=== PATIENT | female | born 1965 | race Caucasian/White ===

== ENCOUNTER 2021-03-14 07:15 | Emergency (ER) | payer BC, SELFPAY ==
[2021-03-14 07:26] VITALS: BP 176/93; PULSE 80; RESP 16; TEMP 36.1; O2SAT 99
--- NOTE | 2021-03-14 07:50 | ED.FEMALEGU ---
HPI - Female Genitourinary General Chief complaint: Urogenital-Female Stated complaint: VAG BLEED Time Seen by Provider: 03/14/21 07:29 Source: patient Mode of arrival: ambulatory Limitations: no limitations History of Present Illness HPI Narrative: Patient is a 35-year-old female complaining of something coming out of my vagina accompanied by mild vaginal bleeding that started this morning. Patient states that she has been coughing for the past 2 weeks. She states that she did test negative for Covid. Patient denies any chest pain, shortness of breath, abdominal pain, nausea, vomiting, diarrhea, GI bleed, fever or chills. Patient denies any injury to the area. Related Data Home Medications Medication Instructions Recorded Confirmed albuterol sulfate 90 mcg/actuation 1 puff INHALATION Q4H PRN 02/21/21 02/21/21 aerosol inhaler aspirin 81 mg tablet,delayed 81 mg PO DAILY 02/21/21 02/21/21 release coenzyme Q10 100 mg capsule 100 mg PO DAILY 02/21/21 02/21/21 ergocalciferol (vitamin D2) 50 mcg 50 mcg PO DAILY 02/21/21 02/21/21 (2,000 unit) capsule lisinopril 10 1 tablet PO DAILY 02/21/21 02/21/21 mg-hydrochlorothiazide 12.5 mg tablet naproxen sodium 220 mg tablet 220 mg PO BID PRN 02/21/21 02/21/21 omeprazole 20 mg capsule,delayed 20 mg PO DAILY 02/21/21 02/21/21 release Allergies Allergy/AdvReac Type Severity Reaction Status Date / Time latex Allergy Mild ITCHING Verified 09/12/14 08:20 No Known Drug Allergies Allergy Unknown unknown Verified 02/21/21 14:38 Review of Systems Review of Systems: All systems reviewed & are unremarkable except as noted in HPI and below Constitutional: Constitutional: Denies body ache(s), Denies chills, Denies excessive sweating, Denies fatigue, Denies fever(s), Denies headache(s), Denies lethargy, Denies malaise, Denies weakness and Denies weight loss Eyes: Eyes: Denies blurry vision, Denies change in vision and Denies loss of vision ENT: Denies dizziness, Denies ear discharge, Denies headache(s), Denies lip swelling, Denies epistaxis, Denies nasal congestion, Denies neck pain, Denies throat swelling and Denies tongue swelling Cardiovascular: Cardiovascular: Denies chest pain, Denies chest pain at rest, Denies chest pain with activity, Denies diaphoresis, Denies rapid heart rate, Denies edema, Denies irregular heart rhythm, Denies lightheadedness, Denies palpitations, Denies dyspnea and Denies dyspnea on exertion Respiratory: Respiratory: Denies chest congestion, Denies cough, Denies hemoptysis, Denies dyspnea and Denies dyspnea on exertion Gastrointestinal: Gastrointestinal: Denies abdominal pain, Denies melena, Denies hematochezia, Denies diarrhea, Denies nausea, Denies vomiting and Denies hematemesis Musculoskeletal: Musculoskeletal: Denies abnormal gait, Denies deformity, Denies joint swelling, Denies limited range of motion, Denies neck pain and Denies numbness Neurologic: Denies Abnormal speech present, Denies abnormal gait, Denies confusion, Denies dizziness, Denies headache(s), Denies focal weakness, Denies loss of vision, Denies numbness, Denies Other visual disturbances, Denies Sensory deficit (Neuro) and Denies weakness Psychiatric: Psychiatric: Denies confusion, Denies depression, Denies auditory hallucinations, Denies homicidal ideation and Denies suicidal ideation Endocrine: Endocrine: Denies cold intolerance, Denies excessive sweating, Denies fatigue, Denies heat intolerance and Denies palpitations Hematologic/Lymphatic: Hematologic/Lymphatic: Denies easy bleeding and Denies easy bruising Allergic/Immunologic: Allergic/Immunologic: Denies lip swelling, Denies throat swelling and Denies tongue swelling PMFSH Past Medical History Medical History Allergies Arthritis Asthma Degenerative arthritis of knee, bilateral Diabetes GERD (gastroesophageal reflux disease) HTN (hypertension) Varicose vein of leg
--- NOTE | 2021-03-14 07:59 | PC.NURSE ---
EDP informed that pt has bleeding and tissue prolapsing from vagina, pelvic exam ready at bedside.
--- NOTE | 2021-03-14 08:50 | PC.NURSE ---
Provider at bedside.
[2021-03-14 09:15] LABS: Add Urine Microscopic? YES; Appearance Urine Clear (Clear); Bilirubin Urine Negative (Negative); Blood Urine 3+ (Negative); Color Urine Yellow (Yellow); Glucose Urine UA Negative (Negative); Ketones Urine Negative (Negative); Leukocyte Esterase Ur Negative LEU/UL (Negative); Mucus Urine Rare /lpf; Nitrate Urine Negative (Negative); Protein Urine 2+ mg/dL (Negative); RBC Urine >75 /hpf (0-2); Specific Grav Ur 1.014 (1.001-1.035); Squamous Epithelial Cell Urine Rare /hpf (Few); Urobilinogen Urine Negative mg/dL (<2.0); WBC Urine 0-3 /hpf
[2021-03-14 10:32] VITALS: BP 139/75; PULSE 82; RESP 18; O2SAT 98
== END 2021-03-14 10:32 | disposition home or self-care (01) ==
PROVIDERS: Emergency Provider Emergency Medicine; PCP Nurse Practitioner Family
DX: N81.4 Uterovaginal prolapse, unspecified (principal); Z79.82 Long term (current) use of aspirin; J45.909 Unspecified asthma, uncomplicated; M17.0 Bilateral primary osteoarthritis of knee; K21.9 Gastro-esophageal reflux disease without esophagitis; I10 Essential (primary) hypertension
CPT/HCPCS: 81001; 81025; 99283

== ENCOUNTER 2022-07-14 21:19 | Emergency (ER) | payer BC, SELFPAY ==
[2022-07-14] VITALS (13 sets, daily range): BP systolic 110–148; BP diastolic 64–77; PULSE 73–81; RESP 18; TEMP 36.3–36.6; O2SAT 98–100
--- NOTE | ~2022-07-14 | CT_ITS ---
CT of the Abdomen and Pelvis: Indication: Abdominal pain Technique: 2.5 mm axial scans were obtained through the abdomen and pelvis following intravenous adm inistration of 100 cc of Omnipaque 350. Dose reduction technique was used on this scan by utilizing a utomated exposure control and iterative reconstruction technique. The dose-length product (DLP) was 1 210.54 mGy-cm. Findings: Scans through the lung bases are unremarkable. The liver, spleen, pancreas, gallbladder, adrenals and left kidney are within normal limits. There is a 3 mm stone at the right UVJ, with mild right hydroureteronephrosis, and delayed right nephrogram. No evidence of aortic aneurysm. No bowel obstruction. There is extensive wall thickening of the sigmoid colon with diverticular disea se present. There are multiple mildly enlarged pericolonic lymph nodes in the sigmoid colon region an d left pelvis (axial images [id number]). There is a mildly enlarged lymph node just anterior to the prox imal aspect of the left common iliac vein, measuring 15 mm in short axis (axial image 105). Images through the pelvis were performed. Urinary bladder otherwise unremarkable. No adnexal mass leatha dent. No ascites. Impression: 3 mm right UVJ stone with mild right hydroureteronephrosis and mildly delayed right nephrogram. Multiple shotty/mildly enlarged lymph nodes in the pelvis, predominantly about the sigmoid colon. Ple ase see details above. Findings could reflect reactive lymph nodes versus the possibility of metastat ic disease or lymphoma. Wall thickening of the sigmoid colon with underlying diverticular disease. Correlate for mild diverti culitis or muscular hypertrophy due to underlying diverticulosis. Underlying neoplasm not completely excluded, especially given the surrounding mild lymphadenopathy. Consider colonoscopy if not recently performed. Reviewed, dictated and finalized at [facility]. Impression: 3 mm right UVJ stone with mild right hydroureteronephrosis and mildly delayed r ight nephrogram. Multiple shotty/mildly enlarged lymph nodes in the pelvis, predominantly about the sigmoid colon. Please see details above. Findings could reflect reactive ly mph nodes versus the possibility of metastatic disease or lymphoma. Wall thickening of the sigmoid colon with underlying diverticular disease. Eugenio elate for mild diverticulitis or muscular hypertrophy due to underlying diverti culosis. Underlying neoplasm not completely excluded, especially given the surr ounding mild lymphadenopathy. Consider colonoscopy if not recently performed.
--- NOTE | 2022-07-14 22:00 | ED.NAVMDI ---
HPI - Nausea/Vomiting/Diarrhea General Chief complaint: Nausea/Vomiting/Diarrhea Stated complaint: flank pain Time Seen by Provider: 07/14/22 21:41 History of Present Illness HPI Narrative: Patient is a 57-year-old female with a history of hypertension, Salinas's esophagus presenting with vomiting and diarrhea. Patient states that for the last several weeks she has been struggling with persistent nausea and intermittent vomiting. States that she has had persistent diarrhea that is sometimes bloody. States that she had bloody stool several years ago and had a colonoscopy that was normal. Over the last day, patient has developed right flank pain that radiates into her right lower quadrant. States that she tried to eat some soup today which exacerbated her nausea. She denies fevers, headache, numbness or weakness, chest pain, shortness of breath, cough, leg swelling. Patient reports some mild dysuria. Related Data Home Medications Medication Instructions Recorded Confirmed albuterol sulfate 90 mcg/actuation 1 puff inhalation Q4H PRN 02/21/21 02/21/21 aerosol inhaler Shortness Of Breath aspirin 81 mg tablet,delayed 81 mg PO DAILY 02/21/21 02/21/21 release coenzyme Q10 100 mg capsule 100 mg PO DAILY 02/21/21 02/21/21 ergocalciferol (vitamin D2) 50 mcg 50 mcg PO DAILY 02/21/21 02/21/21 (2,000 unit) capsule lisinopril 10 1 tablet PO DAILY 02/21/21 02/21/21 mg-hydrochlorothiazide 12.5 mg tablet naproxen sodium 220 mg tablet 220 mg PO BID PRN Pain 02/21/21 02/21/21 (Flanax (naproxen)) omeprazole 20 mg capsule,delayed 20 mg PO DAILY 02/21/21 02/21/21 release Allergies Allergy/AdvReac Type Severity Reaction Status Date / Time latex Allergy Mild ITCHING Verified 09/12/14 08:20 No Known Drug Allergies Allergy Unknown unknown Verified 02/21/21 14:38 Review of Systems Review of Systems: All systems reviewed & are unremarkable except as noted in HPI and below PMFSH Past Medical History Medical History Allergies Arthritis Asthma Degenerative arthritis of knee, bilateral Diabetes GERD (gastroesophageal reflux disease) HTN (hypertension) Varicose vein of leg Family History Family History Other Alcoholism Cancer Cerebrovascular accident Depression Diabetes mellitus Heart disease Hypertension Social History Social History Smoking status: Never smoker Alcohol intake: never Substance use: never Living arrangements: alone Occupation/Education: occupation Additional occupation/education comments: cook Gender identity (if verbalized by the patient): Male Exam Narrative: GENERAL: Well-appearing, well-nourished, and in no acute distress. HEAD: Normocephalic, atraumatic. EYES: PERRLA and EOMI. ENT: Nares clear, no rhinorrhea or epistaxis. Mucous membranes moist. NECK: Supple. CHEST: Clear to auscultation. No respiratory distress. HEART: Regular rate and rhythm ABDOMEN: Soft, + mild right flank/right lower quadrant tenderness, no guarding or rebound EXTREMITIES: Normal range of motion. No edema. SKIN: Warm, dry, no rash. NEURO: No focal deficits. Alert and oriented x3. PSYCH: Normal mood and affect. Course Vital Signs Vital signs: Vital Signs Temperature 97.4 F L 07/14/22 21:23 Pulse Rate 73 07/14/22 21:23 Respiratory Rate 18 07/14/22 21:23 Blood Pressure 131/77 07/14/22 21:23 Pulse Oximetry 100 07/14/22 21:23 Oxygen Delivery Room Air 07/14/22 21:23 Temperature 98 F 07/14/22 23:31 Pulse Rate 75 07/15/22 01:36 Respiratory Rate 14 07/15/22 01:36 Blood Pressure 120/73 07/15/22 01:36 Pulse Oximetry 98 07/15/22 01:36 Oxygen Delivery Room Air 07/14/22 21:23 MDM - Nausea/Vomiting/Diarrhea MDM Narrative Medical decision making narrative: Patient is a 57-y
[2022-07-14] MEDS: SODIUM CHLORIDE 0.9% IV 1,000 ML 999 ML IV CONT ×2 (22:04→22:55)
[2022-07-14 22:11] LABS: Basophils Absolute Auto 0.1 K/mm3 (0.0-0.1); Basophils Percent Auto 0.5 % (0.2-1.2); Eosinophils Absolute Auto 0.6 K/mm3 (0-0.3); Eosinophils Percent Auto 4.3 % (0-4.4); Hematocrit 32.2 % (37.0-47.0); Hemoglobin 10.5 g/dL (12.0-15.0); Immature Granulocyte Absolute 0.06 K/mm3 (0.00-0.031); Immature Granulocyte Percent A 0.4 % (0-0.5); Lymphocytes Percent Auto 16.2 % (18.3-44.2); Mean Corpuscular HGB Conc 32.6 g/dl (32-36); Mean Corpuscular Hemoglobin 29.4 pg (26-34); Mean Corpuscular Volume 90.2 fl (80-100); Mean Platelet Volume 9.6 fl (7.4-10.4); Monocytes Absolute Auto 0.8 K/mm3 (0.1-0.6); Monocytes Percent Auto 5.7 % (2.6-8.5); Neutrophils Absolute Auto 10.4 K/mm3 (1.3-6.7); Neutrophils Percent Auto 72.9 % (45.5-73.1); Platelet Count Result 384 k/mm3 (150-375); Red Blood Count 3.57 M/mm3 (4.2-5.4); Red Cell Distribution Width 12.7 % (11.5-14.5); White Blood Count 14.2 K/mm3 (4.5-10.0)
[2022-07-14 22:17] LABS: Appearance Urine Cloudy (Clear); Bacteria Urine None Seen /hpf; Bilirubin Urine Negative (Negative); Blood Urine 3+ (Negative); Color Urine Yellow (Yellow); Glucose Urine UA 1+ mg/dL (Negative); Ketones Urine Negative (Negative); Leukocyte Esterase Ur 1+ LEU/UL (Negative); Nitrate Urine Negative (Negative); Protein Urine 1+ mg/dL (Negative); RBC Urine >100 /hpf (0-2); Squamous Epithelial Cell Urine Few /hpf (Few); Urobilinogen Urine 0.2 mg/dL (<2.0)
[2022-07-14 22:23] LABS: Add Urine Microscopic? YES
[2022-07-14 22:25] LABS: Alanine Aminotransferase 15 U/L (6-35); Albumin Level 4.4 g/dL (3.5-5.1); Alkaline Phosphatase 71 U/L (38-126); Anion Gap 7 mmol/L (8-16); Aspartate Amino Transferase 20 U/L (14-36); Bilirubin,Total 0.5 mg/dL (0.2-1.3); Blood Urea Nitrogen 31 mg/dL (7-17); Carbon Dioxide 29 mmol/L (22-30); Chloride 99 mmol/L (98-107); Estimated CRCL calculation 50 ml/min; Estimated Glomerular Filt Rate 46; Glucose 142 mg/dL (65-110); Lipase 377 U/L (23-300); Potassium 3.7 mmol/L (3.4-5.0); Sodium 135 mmol/L (137-145)
[2022-07-14] MEDS: PANTOPRAZOLE SODIUM IV 40 MG VIAL IV PUSH (23:43)
[2022-07-15] MEDS: AMOXICILLIN/CLAVULANATE K 875-125 MG TAB 1 TABLET PO (00:14)
[2022-07-15] MEDS: KETOROLAC 15 MG/ML VIAL (*BKC) IV PUSH (01:23)
[2022-07-15 01:36] VITALS: BP 120/73; PULSE 75; RESP 14; O2SAT 98
== END 2022-07-15 01:40 | disposition home or self-care (01) ==
PROVIDERS: Emergency Provider Emergency Medicine; PCP Nurse Practitioner Family
DX: N20.1 Calculus of ureter (principal); K57.92 Diverticulitis of intestine, part unspecified, without perforation or abscess without bleeding; M19.90 Unspecified osteoarthritis, unspecified site; J45.909 Unspecified asthma, uncomplicated; E11.9 Type 2 diabetes mellitus without complications; I10 Essential (primary) hypertension; K21.9 Gastro-esophageal reflux disease without esophagitis
CPT/HCPCS: 36415; 74177; 80053; 81001; 83690; 85025; 87086; 87088; 96361; 96365; 96374; 96375; 99284; A9270; C9113; J0131; J1885; J7030; Q9967

== ENCOUNTER 2023-06-28 18:09 | Emergency (ER) | payer BC, SELFPAY ==
[2023-06-28 18:21] VITALS: BP 136/66; PULSE 84; RESP 16; TEMP 36.8; O2SAT 100
--- NOTE | 2023-06-28 18:23 | ED.SKABFB ---
HPI - Skin/Abscess/Foreign Bdy General Chief complaint: Skin/Abscess/Foreign Body Stated complaint: BACK PAIN Time Seen by Provider: 06/28/23 18:35 Source: patient and RN notes reviewed Mode of arrival: ambulatory Limitations: no limitations History of Present Illness HPI narrative: 58-year-old female presents with concern for painful rash to her back that she noticed yesterday. She reports that is spreading to warts her left side. Denies fever, aches, chills, sweats, general malaise. Denies any open blisters MD complaint: rash Related Data Home Medications Medication Instructions Recorded Confirmed aspirin 81 mg tablet,delayed 81 mg PO DAILY 02/21/21 06/28/23 release coenzyme Q10 100 mg capsule 100 mg PO DAILY 02/21/21 06/28/23 ergocalciferol (vitamin D2) 50 mcg 50 mcg PO DAILY 02/21/21 06/28/23 (2,000 unit) capsule lisinopril 10 1 tablet PO DAILY 02/21/21 06/28/23 mg-hydrochlorothiazide 12.5 mg tablet Allergies Allergy/AdvReac Type Severity Reaction Status Date / Time latex Allergy Mild ITCHING Verified 09/12/14 08:20 Review of Systems Review of Systems: CONSTITUTIONAL: Denies malaise, chills, sweats, or fever. EYES: Denies redness, or discharge. ENT: Denies rhinorrhea, congestion, swollen lips, swollen tongue CARDIOVASCULAR: Denies chest pain, palpitations, or edema. RESPIRATORY: Denies cough or dyspnea. GASTROINTESTINAL: Denies abdominal pain, nausea, vomiting SKIN: Reports painful rash on the back MUSCULOSKELETAL: Denies joint pain or myalgia. NEUROLOGIC: Denies headache. All systems reviewed & are unremarkable except as noted in HPI and below [facility] Past Medical History Medical History Allergies Arthritis Asthma Degenerative arthritis of knee, bilateral Diabetes GERD (gastroesophageal reflux disease) HTN (hypertension) Varicose vein of leg Family History Family History Other Alcoholism Cancer Cerebrovascular accident Depression Diabetes mellitus Heart disease Hypertension Social History Social History Smoking status: Never smoker Alcohol intake: never Substance use: never Living arrangements: alone Occupation/Education: occupation Additional occupation/education comments: cook Gender identity (if verbalized by the patient): Male Comments At time of signature, agree with nursing past medical, surgical, social and family history. There is no relevant family history pertinent to the presenting complaint Exam Narrative: GENERAL: Well-appearing, well-nourished, and in no acute distress. HEAD: Normocephalic, atraumatic. EYES: PERRLA, conjunctivae clear, and EOMI. ENT: Mucous membranes moist. Oropharynx without edema, erythema or lesions. NECK: Supple. No lymphadenopathy CHEST: Clear to auscultation. No respiratory distress. HEART: Regular rate and rhythm. SKIN: Warm, dry. Zosteriform rash noted to the left back under the bra line NEURO: Alert and oriented x3. PSYCH: Normal mood and affect Course Course Emergency Course: Patient is aware of diagnosis, understands and agrees to treatment plan. Anticipatory guidance given. Patient agrees to follow-up as directed and is aware of reasons to seek care at the emergency department. Portions of this record may have been created with voice recognition software Level of Care: Express Care Visit Vital Signs Vital signs: Vital Signs Temperature 98.2 F 06/28/23 18:21 Pulse Rate 84 06/28/23 18:21 Respiratory Rate 16 06/28/23 18:21 Blood Pressure 136/66 06/28/23 18:21 Pulse Oximetry 100 06/28/23 18:21 Temperature 98.2 F 06/28/23 18:21 Pulse Rate 84 06/28/23 18:21 Respiratory Rate 16 06/28/23 18:21 Blood Pressure 136/66 06/28/23 18:21 Pulse Oximetry 100 06/28/23 18:21 Reviewed. [facility] -
== END 2023-06-28 18:48 | disposition home or self-care (01) ==
PROVIDERS: Emergency Provider Nurse Practitioner
DX: B02.9 Zoster without complications (principal); J45.909 Unspecified asthma, uncomplicated; E11.9 Type 2 diabetes mellitus without complications; K21.9 Gastro-esophageal reflux disease without esophagitis; I10 Essential (primary) hypertension; M17.0 Bilateral primary osteoarthritis of knee
CPT/HCPCS: 99213; G0463